=== PATIENT | female | born 1940 | race Caucasian/White ===

== ENCOUNTER → 2019-01-06 | Outpatient (CLI) | payer MEDICARE ==
--- NOTE | 2019-01-06 14:28 | Diagnostic Imaging Report ---
PROCEDURE: BONE DXA DUAL ENERGY COMPARISON:None. INDICATIONS:Osteoporosis FINDINGS:Evaluation of the left hip and lumbar spine was performed utilizing DEXA Hologic bone densitometer. The study is technically adequate. The patient does not have any known previous non-traumatic fractures or other risk factors. Left hip total bone mineral density: 0.600 gm/cm2, T-score is -2.8, Z-score is -0.9. Lumbar spine total bone mineral density: 0.933 gm/cm2, T-score is -1.0, Z-score is 1.5. Impression: 1. Bone mineral density of the left hip classified as osteoporosis, fracture risk is increased. 2. Normal bone mineral density of the lumbar spine, fracture risk is not increased. The patient's fracture risk is compared to an age-matched control. Medical evaluation for secondary causes of low bone mineral density may be appropriate. Correlate clinically for the necessity and timing of the next bone mineral density study. [employer] recommendations: Initial therapy to reduce fracture risk in postmenopausal women with -BMD t-scores below -2.0 by central DXA with no risk factors -BMD t-scores below -1.5 by central CXA with one or more risk factors (first deg relative with hip fracture, prior personalfracture, low body weight, smoking) -A prior vertebral or hip fracture AACE n(Clinical Endocrinology) recommends treating the following: Postmenopausal women who have osteoporosis as diagnosed by fragility fractures or t-score -2.5 or below. Postmenopausal women who have risk factors (including hx of hip fracture, low body weight, smoking, risk of falling, high bone turnover, advancing age) and borderline low BMD T-scores of -1.5 or below Adequate intake of calcium (at least 1200mg/day) and vitamin D (400-800IU/day). Regular weight bearing and muscle-strengthening exercises Avoid smoking and excessive alcohol Emanuel Saba D.O. Dictated by: Emanuel Saba D.O. on 01/06/2019 at 14:29 Electronically approved by: Emanuel Saba D.O. on 01/06/2019 at 14:29
== END ==
LOC: DX 12:38
PROVIDERS: ATTEND Internal Medicine
DX: M81.0 Age-related osteoporosis without current pathological fracture (principal)
CPT/HCPCS: 77080